=== PATIENT | male | born 1970 | race African-American/Black ===

== ENCOUNTER 2017-01-01 21:29 | Emergency (ER) | payer OTHER ==
[~2017-01-01 21:29] MED LIST: EPIP0.3I IM
[2017-01-01 21:31] VITALS: BP 131/83; PULSE 96; RESP 14; TEMP 98.5; O2SAT 98
--- NOTE | 2017-01-01 22:14 | RADRPT ---
EXAM DATE/TIME: 01/01/2017 21:49 [place] COMPARISON: No previous studies available for comparison. INDICATIONS : Twisted left knee. Pain and limited motion. MEDICAL HISTORY : None. SURGICAL HISTORY : None. ENCOUNTER: Initial ACUITY: 1 day PAIN SCORE: 9/10 LOCATION: Left lateral FINDINGS: Four view examination of the left knee demonstrates no evidence of fracture or dislocation. Bony min eralization is normal. The articular surfaces are intact. The suprapatellar soft tissues have a nor mal configuration. CONCLUSION: Unremarkable examination of the left knee. Cas Jacobs Jr., MD on January 01, 2017 at 22:11 Board Certified Radiologist. This report was verified electronically.
[2017-01-01] MEDS ORDERED: DICL50TA PO (22:26)
--- NOTE | 2017-01-01 22:28 | PD ---
HPI Chief Complaint: Pain: Acute or Chronic Time Seen by Provider: 22:17 Travel History International Travel<30 days: No Contact w/Intl Traveler<30days: No Traveled to known affect area: No History of Present Illness HPI 46 year old male presents to the emergency department for evaluation of medial left knee pain that started yesterday morning upon wakening. He denies any injury. He reports severe pain with movement. He has been ambulatory, but has been limping. He denies any erythema, warmth. No fevers. He reports history of HTN. He denies any history of knee injury, but reports that he previously played soccer. No other complaints. PFSH Past Medical History Medical History: Denies Significant Hx Blood Disorders: No Cancer: No Cardiovascular Problems: No Diminished Hearing: No Endocrine: No Genitourinary: No Immune Disorder: No Musculoskeletal: Yes Neurologic: No Psychiatric: No Reproductive: No Respiratory: No Influenza Vaccination: No Past Surgical History Surgical History: No Previous Surgery Social History Alcohol Use: Yes (OCCASIONALLY) Tobacco Use: Yes (OCC) Substance Use: No Allergies-Medications (Allergen,Severity, Reaction): Coded Allergies: No Known Allergies (Verified , 01/01/17) Reported Meds & Prescriptions Reported Meds & Active Scripts Active Diclofenac Potassium 50 Mg Tab 50 Mg PO TID PRN Review of Systems Except as stated in HPI: all other systems reviewed are Neg Physical Exam Narrative GENERAL: Well-nourished, well-developed male patient, afebrile. SKIN: Focused skin assessment warm/dry. HEAD: Normocephalic. Atraumatic. EYES: No scleral icterus. No injection or drainage. NECK: Supple, trachea midline. No JVD or lymphadenopathy. CARDIOVASCULAR: Regular rate and rhythm without murmurs, gallops, or rubs. Left pedal pulse 2+. RESPIRATORY: Breath sounds equal bilaterally. No accessory muscle use. Lung sounds are clear to auscultation. GASTROINTESTINAL: Abdomen soft, non-tender, nondistended. MUSCULOSKELETAL: No cyanosis, or edema. Patient has limited flexion due to pain. BACK: Nontender without obvious deformity. No CVA tenderness. Data Data Last Documented VS Vital Signs Date Time Temp Pulse Resp B/P Pulse Ox O2 Delivery O2 Flow Rate FiO2 01/01/17 21:31 98.5 96 14 131/83 98 Room Air Orders Knee, Complete (4vws) (01/01/17 ) Ketorolac Inj (Toradol Inj) (01/01/17 22:30) Splint Or Brace Apply/Monitor (01/01/17 22:16) Crutches (01/01/17 22:16) MDM Medical Decision Making Medical Screen Exam Complete: Yes Emergency Medical Condition: Yes Medical Record Reviewed: Yes Interpretation(s) x-ray left knee - CONCLUSION: Unremarkable examination of the left knee. Differential Diagnosis sprain vs. strain vs. fracture vs. dislocation vs. septic joint Narrative Course 46 year old male presents to the emergency department for evaluation of left knee pain since yesterday. No evidence of septic joint at this time. X-ray shows no acute abnormality. Patient is given Toradol 60 mg IM. He is provided knee immobilizer and crutches. He is instructed to follow up with an orthopedist. He is to return for any acute, worsening of symptoms. Patient will be discharged with a prescription for diclofenac. The patient was discharged in stable condition with instructions, including return instructions and follow up instructions. Diagnosis Primary Impression: Left knee pain Qualified Code: M25.562 - Acute pain of left knee Referrals: Satish Tavares MD Orthopedist call for appointment Patient Instructions: General Instructions, Knee Pain (ED) Additional Instructions: Wear knee immobilizer and use crutches as needed for support. Ice for 20 mins 4-5 times daily. Take Diclofenac as directed as needed with food for pain. Follow up with an orthopedist. Return to the emergency department for any acute, worsening of symptoms. Med/Other Pt SpecificInfo: Prescription(s) given Scripts Diclofenac Potassium 50 Mg Tab50 Mg PO TID PRN (PAIN SCALE 1 TO 10) #21 TAB Ref 0 Prov:Mary Ann Medina 01/01/17 Disposition: 01 DISCHARGE HOME Condition: Stable Mary Ann Medina January 01, 2017 22:28
[2017-01-01] MEDS ORDERED: KETOROLAC TROMETHAMINE 60 MG/2 ML (IM) VIAL IM ONE (22:30)
== END 2017-01-01 22:44 | disposition home or self-care (01) ==
LOC: NEPD 21:29
DX: M25.562 Pain in left knee (principal); I10 Essential (primary) hypertension
CPT/HCPCS: 73564; 96372; 99284; E0113; J1885; L1830